=== PATIENT | male | born 1965 | race Caucasian/White ===

== ENCOUNTER 2021-03-23 17:00 | Inpatient (IN) | payer BC ==
[~2021-03-23] VITALS: Ht 180.3 cm; Wt 121.5 kg
--- OUTSIDE RECORDS SUMMARY | 2021-03-23 17:02 | XMS ---
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 [facility] VISIT COUNT (12 MO.) 1 SAÚL Marie TOTAL 1 NOTE: Visits indicate total known visits. ED/UCC VISIT TRACKING (12 MO.) 03/23/2021 17:00 SAÚL Maldonado OR TYPE: Emergency COMPLAINT: - DIZZINESS, NAUSEA/VOMITING INPATIENT VISIT TRACKING (12 MO.) No inpatient visits to display in this time frame [id number]
[2021-03-23] MEDS ORDERED: RAMIPRIL2.5 MG PO (17:14)
[2021-03-23] MEDS ORDERED: TESTOSTERO200 MG/1 M IM (17:14)
[2021-03-23] MEDS ORDERED: DOXAZOSIN MESYLA1 MG PO (17:14)
[2021-03-23] MEDS ORDERED: TAMSULOSIN HCL0.4 MG PO (17:15)
[2021-03-23] MEDS ORDERED: METOPROLOL SUCC50 MG PO (17:15)
[2021-03-23] MEDS ORDERED: ANASTROZOLE1 MG PO (17:15)
--- NOTE | 2021-03-24 00:15 | NUR ---
in bed, eyes closed, resp even = cpap.
--- NOTE | 2021-03-24 00:33 | NUR ---
PT TO ROOM 115 FROM ED VIA STRETCHER AT 2345 WITH GRAVEL MACHINE OPERATOR. PT ALERT AND ORIENTED. ABLE TO TRANSFER SELF FROM BED TO STRETCHER. REPORTS INCREASED DIZZINESS/NAUSEA WITH MOVEMENT. ORDERS RECEIVED. IVF STARTED. SCHEDULED MEDS ADMINISTERED. PT DENIES PAIN. NEURO CHECK COMPLETE. NO DEFECITS NOTED. PT REPORTS DIZZINESS IMPROVED AFTER LYING STILL. TELE #[address] NSR[address] PT DENIES QUESTIONS OR CONCERNS AT THIS TIME. ORIENTATION TO ROOM AND NURSE CALL LIGHT PROVIDED.
--- NOTE | 2021-03-24 02:25 | NUR ---
VS AND I&O COMPLETE. NEURO ASSESSMENT COMPLETE. CONCRETE STONE FABRICATOR STRENGTH EAQUAL BILAT. PT REPORTS INTERMITTENT DOUBLE VISION "DEPENDING ON WHICH WAY I LOOK". PT ALSO REPORTS VISION CLEARS IF HE "CONCENTRATES FOR A FEW". NO OTHER DEFECITS NOTED. PT DENIES PAIN OR NAUSEA. DRINKING CLEAR LIQUIDS. PT ABLE TO REPOSITION SELF IN BED. HOME CPAP IN PLACE. PT DENIES NEEDS AT THIS TIME. CALL LIGHT IN REACH.
--- NOTE | 2021-03-24 04:22 | NUR ---
PT RESTING IN BED ON RIGHT SIDE. RESPIRATIONS EVEN. CPAP IN PLACE. TELE #7. HR 70'S.
--- NOTE | 2021-03-24 06:47 | NUR ---
VS AND I&O COMPLETE. PRN FOR PAIN ADMINISTERED FOR HEADACHE. NEURO CHECK COMPLETE. RIM TURNING FINISHER STRENGTH EQUAL BILAT. PT REPORTS DOUBLE VISION AND CONTINUED VERTIGO. DENIES NAUSEA AT THIS TIME. CLEAR LIQUIDS PROVIDED. MRI CHECKLIST COMPLETED AND PLACED IN CHART. PT DENIES FURTHER NEEDS. CALL LIGHT IN REACH.
--- NOTE | 2021-03-24 07:20 | NUR ---
REPORT RECIEVED FROM NIGHT CHAZ RENO
--- NOTE | 2021-03-24 07:34 | NUR ---
PULLED BLOOD OUT OF IV WO DIFFICULTY. RESTARTED FLUIDS. PT TOLERATED WELL.
--- NOTE | 2021-03-24 07:58 | NUR ---
MORNING ASSESSMENT DONE. PATIENT IS RESTING IN BED, REPORTS CONTINUED DOUBLE VISION. CLEAR LIQUIDS TO PATIENT, PLAN FOR BREAKFAST IN BED. PATIENT REPORTS HEADACHE IS 3/10 AND SLIGHTLY IMPROVED SINCE TYLENOL. PATIENT HAS HOME CPAP AT BEDSIDE. PATIENT GIVEN WEAK COFFEE, BELIEVES HE IS PARTIALLY HAVING A CAFFEINE HEADACHE. NO OTHER NEEDS NOTED AT THIS TIME.
--- NOTE | 2021-03-24 07:59 | EKG ---
[facility] [address] [facility] [place] [address] Signed Normal sinus rhythm Normal ECG When compared with ECG of 08-FEB-2017 15:57, Questionable change in QRS axis T wave inversion more evident in Inferior leads Confirmed by GEETHA FIERRO MD ([id number]) on 03/24/2021 7:59:16 AM Electronically Signed By: GEETHA FIERRO MD 03/24/21 0759 PATIENT NAME: CHALINO MATTA Electrocardiogram DATE OF : 69 PHYSICIAN: GEETHA FIERRO MD REPORT #: [id number] REPORT IS CONFIDENTIAL AND NOT TO BE RELEASED WITHOUT AUTHORIZATION
--- NOTE | 2021-03-24 08:15 | NUR ---
PT AWAKE IN BED. PT REQUESTED COFFEE SHADIA ZHENG ALLOWED WATERED DOWN COFFEE. WARM CLOTH GIVEN FOR FACE. CLEAR SODA GIVEN. PT REFUSED CHAIR PT IS AFRAID TO FALL OUT OF THE CHAIR. CALL LIGHT WITHIN REACH. NO FURTHER NEEDS AT THIS TIME.
--- NOTE | 2021-03-24 09:56 | NUR ---
MORNING MEDICATIONS GIVEN. PATIENT REPORTS CONTINUED HEADACHE, BELIEVES THIS WAS EXACERBATED BY WORKING WITH PHYSICAL THERAPY. SPOUSE IN ROOM WITH PATIENT, QUESTIONS ANSWERED ABOUT MEDICATIONS AND THERAPIES.
--- NOTE | 2021-03-24 10:12 | NUR ---
PT RESTING IN BED WITH FAMILY IN THE ROOM. CALL LIGHT WITHIN REACH. 12.5 IS THE PRESSURE READING ON BIPAP MACHINE. NO FURTHER NEEDS AT THIS TIME
--- NOTE | 2021-03-24 10:13 | NUR ---
PER PATIENT REQUEST, DISCUSSED PATIENT'S HOME TESTOSTERONE INJECTION. DR. FIERRO INDICATED THAT SHE WAS INTENTIONALLY HOLDING THIS MEDICATION. RELAYED INFORMATION TO PATIENT AND SPOUSE.
--- NOTE | 2021-03-24 11:05 | NUR ---
I was able to visit with Mrs. Garvin today, unfortunately Mr. Garvin was sleeping while I was in the room. He was wearing his CPAPP, and his resperations were even and unlabored. He did not awaken while I was visiting with Mr. Garvin. Mrs. Garvin states that she is happy with the care that her is receiving. She is aware that Mr. Garvin will be getting an MRI this afternoon, and she has no questions or concerns for me at this time. I did leave my card with Mrs. Garvin should she have any questions in the future.
--- NOTE | 2021-03-24 11:52 | NUR ---
PATIENT IS RESTING IN BED, CPAP IS ON, SPOUSE IN ROOM, DENIES NEEDS AT THIS TIME.
--- NOTE | 2021-03-24 12:37 | NUR ---
PT LAYING IN BED, ROOM DARKENED ON PT'S REQUEST. PT SUPPORTED BY HIS SIDNEY AT . PT FEELS INFORMED, WAITING FOR MRI LATER TODAY FOR MORE INFO. PAIN IN HEAD AND NECK. PT ALERT ORIENTED AND DECLINED PRAYER AT THIS TIME. WILL FOLLOW NEEDED
--- NOTE | 2021-03-24 13:08 | NUR ---
PATIENT AT MRI.
[2021-03-24] MEDS ORDERED: CLOMIPHENE CITR50 MG PO (13:42)
[2021-03-24] MEDS ORDERED: ADULT ASPIRIN R81 MG PO (13:43)
[2021-03-24] MEDS ORDERED: VITAMIN D350 MC3 PO (13:44)
[2021-03-24] MEDS ORDERED: VITAMIN C500 M1 PO (13:44)
[2021-03-24] MEDS ORDERED: FISH OIL 1,0001 EAC2 PO (13:45)
--- NOTE | 2021-03-24 13:46 | NUR ---
PATIENT BACK FROM MRI, ONE PERSON ASSIST, CONTINUED DOUBLE VISION. PATIENT IS SITTING AT BEDSIDE TO USE URINAL, SPOUSE IS IN ROOM WITH PATIENT.
--- NOTE | 2021-03-24 13:54 | NUR ---
MED REC COMPLETE
--- NOTE | 2021-03-24 15:50 | NUR ---
PATIENT IS SLEEPING, SPOUSE DENIES NEEDS.
--- NOTE | 2021-03-24 16:02 | NUR ---
Spoke with pt and , Lilliam. Currently living in a 5th wheel RV. Both state concern of pt getting into and around in RV. Pt cont. to complain of dizziness, double vision, and L side feeling odd. Pt stat es he has been on disability x 2 years for femur fracture. works at [employer]. Discussed visit with Dr. Diaz hospitalist and she feels pt would do well at an IP rehab. Pt and are both in agreement with this. UPdated to [place] and [facility]. would prefer [facility] then [facility]. Informed I will check what is available in [facility] [place]. He states he is eligible for medicaid in Nov of this year. Will check with IP rehabs for availability.
--- NOTE | 2021-03-24 17:12 | NUR ---
CALL TO DR. FRANCIS. PATIENT IS NOT WILLING TO TAKE LIPITOR HE REPORTS PAST SEVERAL TRIES ON STATINS AND UNKNOWN ALLERGIC REACTION.
--- NOTE | 2021-03-24 19:00 | NUR ---
PT AWAKE IN ROOM PT AMBULATED TO SHOWER AND IS USING SHOWER CHAIR TO INDEPENDENTLY. LINEN CHANGED. IN ROOM. NO FURTHER NEEDS
--- NOTE | 2021-03-24 19:38 | NUR ---
shift report from jocelynn rn, pt out to meet rn - reports he is resting, she denies needs for him.
--- NOTE | 2021-03-24 20:37 | NUR ---
PT AMB TO BR TO VOID WITH JAMES, RN ASSISTED. PT VERY STEADY. PO MEDS FOR H/A. CALL KEVIN IN REACH.
--- NOTE | 2021-03-25 06:41 | NUR ---
pt checked on, resp rate regular, cpap on. eyes closed - charger operator helper aware that pt was allowed to rest. call light in reach
--- NOTE | 2021-03-25 07:03 | NUR ---
Report from Rashel Rucker RN. Patient lying in bed, CPAP in place. Vitals obtained by Rashel Rucker RN, at this time. Patient denies other needs. Call light in reach, bed rails up X2.
--- NOTE | 2021-03-25 07:23 | NUR ---
Shift report recieved from SHADIA Soriano, pt resting safely in bed w/ call light in reach and CPAP on. Pt denies any needs at this time.
--- NOTE | 2021-03-25 08:31 | NUR ---
Pt resting in bed safely w/ call light in reach and CPAP on. Breakfast at bedside, but pt states he does not have an appetite due to MORALES, PRN Tylenol given per pt request/provider order. Morning assesment complete and scheduled meds given per provider order. Pt denies any other needs at this time .
--- NOTE | 2021-03-25 09:36 | NUR ---
CALL PLACED TO MARSHALL AT [facility]. MARSHALL REQUESTING FURTHER OT, ST AND DISCHARGE PLAN INFORMATION. DETAILS DISCUSSED AND CHART NOTES FAXED. MARSHALL STATES SHE WILL HAVE THE IP MD REVIEW THE NOTES SENT TODAY, BUT THE PATIENT DOES LOOK LIKE A GOOD CANDIDATE FOR ADMISSION. MARSHALL STATES SHE WILL CALL WHEN AUTH IS SUBMITTED TO PATIENTS INSURANCE. CLIFF RENO UPDATED.
--- NOTE | 2021-03-25 09:43 | NUR ---
Patient uses call light to request something for nausea. States headache has dropped from 5/10 to 3/10, but pain is causing him to feel nauseated. PRN Zofran administered, instructed to call if nausea is not improving to notify staff. Verbalizes understanding. Denies other needs at this time. Call light in reach, bed rails up X2.
--- NOTE | 2021-03-25 10:21 | NUR ---
Pt is resting in bed safely w/ call light in reach. Pt c/o feeling dizzy and anxious PRN med given per pt request/provider order. Pt unable to eat breakfast due to dizziness. VSS on RA
--- NOTE | 2021-03-25 11:01 | NUR ---
Spoke with Ashley at [facility] rehab they are submitting for auth to [facility]. She is requesting note for ST and note sent showing pt was not seen due to PT/OT seeing pt.
--- NOTE | 2021-03-25 11:39 | NUR ---
PER DECEMBER AT [facility] PATIENT HAS BEEN ACCEPTED TO THEIR PROGRAM. DECEMBER TO SUBMIT FOR INSURANCE APPROVAL AT THIS TIME. CLIFF RENO UPDATED.
--- NOTE | 2021-03-25 12:00 | NUR ---
Pt sitting up in bed, provider in room to see pt.
--- NOTE | 2021-03-25 12:45 | NUR ---
DR. FRANCIS UPDATED REGARDING PLACEMENT TO [facility] RE[facility]. INSURANCE AUTHORIZATION STILL PENDING AT THIS TIME. WILL CONTINUE TO FOLLOW UP ON REFERRAL.
--- NOTE | 2021-03-25 13:46 | NUR ---
CONNECTED [facility]. SHE FEELS PT IS SLIGHTLY IMPROVING, RESTED WELL LAST NIGHT BUT STILL HAS HEADACHE. SHE FEELS INFORMED AND SEEMED TO BE IN A HURRY. GAVE BLESSING, WILL FOLLOW
--- NOTE | 2021-03-25 14:23 | NUR ---
Pt resting in bed safely w/ call light in reach, at bedside. Pt c/o Billy and dizziness. PRN medications given per pt request/provider order. Afternoon assesment complete and scheduled medication given per provider order, VSS on RA. Pt denies any other needs at this time
--- NOTE | 2021-03-25 16:00 | NUR ---
Pt resting in bed safely w/ call light in reach. Pt denies any needs at this time
--- NOTE | 2021-03-25 18:00 | NUR ---
Pt resting in bed w/ CPAP on and call light in reach, RR even and unlabored.
--- NOTE | 2021-03-25 20:00 | NUR ---
PATIENT RESTING QUIETLY ON THE LEFT SIDE, CPAP IS ON, PATIENT'S EYES ARE CLOSED, RESPIRATIONS REGULAR AND EVEN, CALL LIGHT IN REACH.
--- NOTE | 2021-03-25 20:49 | NUR ---
PATIENT GIVEN 400MG ADVIL FOR MORALES AND 4MG IV ZOFRAN FOR NAUSEA. PATIENT ABLE TO KEEP DOWN OTHER ORAL MEDS. PATIENT'S WATER REFILLED AND SOME POP GIVEN. PATIENT HAD NO OTHER NEEDS AT THIS TIME. CALL LIGHT IN REACH.
--- NOTE | 2021-03-25 22:00 | NUR ---
PATIENT HAS HAD NO MORE C/O NAUSEA OR PAIN AND IS RESTING QUIETLY ON CPAP WITH REGULAR AND EVEN RESPIRATIONS, EYES CLOSED, CALL LIGHT IN REACH.
--- NOTE | 2021-03-26 00:21 | NUR ---
PATIENT RESTING QUIETLY ON CPAP, RESPIRATIONS REGULAR AND EVEN, CALL LIGHT IN REACH.
--- NOTE | 2021-03-26 02:30 | NUR ---
PATIENT RESTING QUIETLY ON HIS RIGHT SIDE, RESPIRATIONS REGULAR AND EVEN ON CPAP, CALL LIGHT IN REACH.
--- NOTE | 2021-03-26 04:38 | NUR ---
PATIENT RESTING QUIETLY ON HIS RIGHT SIDE, RESPIRATIONS REGULAR AND EVEN ON CPAP, CALL LIGHT IN REACH.
--- NOTE | 2021-03-26 05:25 | NUR ---
PATIENT'S MORALES HAS RETURNED 01/12 AND PO ADVIL REPEATED. PATIENT'S HAVING NO NAUSEA AND SAYS HE HAS SLEPT PRETTY WELL. PATIENT HAVING NO DOUBLE VISION OR ANY OTHER NEUROLOGICAL ISSUES AT THIS TIME. PATIENT HAD NO CURRENT CARE NEEDS AND LIGHTS TURNED BACK DOWN PATIENT WOULD LIKE TO GO BACK TO SLEEP. PATIENT HAS BEEN ON HIS CPAP ALL NIGHT. CALL LIGHT IN REACH.
--- NOTE | 2021-03-26 07:11 | NUR ---
Report from Callie Mosley RN. Patient resting in bed with CPAP in place. Respirations even and unlabored. Allowed to rest at this time. Call light in reach. Bed rails up X2.
--- NOTE | 2021-03-26 07:46 | NUR ---
Deshaun report recieved from SHADIA Hwang, pt resting in bed safely w/ CPAP on and call light in reach.
--- NOTE | 2021-03-26 09:05 | NUR ---
PATIENT UP IN CHAIR. FINISHED 100% OF BREAKFAST. CHANGED LINEN. TOOK VITALS. ALL IN NORMAL RANGE. PATIENT RECIEVED BLANKET, ICE WATER AND SPRITE. DOES NOT NEED ANYTHING ELSE AT THIS TIME. CALL LIGHT IN REACH.
--- NOTE | 2021-03-26 10:00 | NUR ---
Spoke with Ashley from [facility] rehab x 2. They have accepted this pt. Updated I am awaiting orders from Dr. Valle and DC summary. Ashley now asking for stat covid test prior to pt leaving. Informed I can do this. Informed pt has been vacinated in February with [facility]. They still require a covid test prior to admission. Order entered and RT notified.
[2021-03-26] MEDS ORDERED: CLOPIDOGREL75 MG PO (10:23)
[2021-03-26] MEDS ORDERED: EZETIMIBE10 MG PO (10:23)
[2021-03-26] MEDS ORDERED: IBUPROFEN200 MG PO (10:24)
[2021-03-26] MEDS ORDERED: MECLIZINE HCL12.5 MG PO (10:25)
[2021-03-26] MEDS ORDERED: ONDANSETRON ODT4 MG SL (10:25)
[2021-03-26] MEDS ORDERED: ACETAMINOPHEN500 MG PO (10:25)
[2021-03-26] MEDS ORDERED: HYDROXYZINE PAM25 MG PO (10:25)
[2021-03-26] MEDS ORDERED: PROCHLORPERAZINE5 MG PO (10:26)
--- NOTE | 2021-03-26 10:33 | NUR ---
Pt worked w/ PT, now back in room, provider in room to asses pt. Pt c/o nausea and dizziness, PRN medication given per pt request/provider order. Morning assesment completed and scheduled meds given per provider order. Pt showereing independently w/ set up assistance needed.
--- NOTE | 2021-03-26 10:54 | NUR ---
RT COLLECTED COVID 19 SWAB WITH NO COMPLICATIONS. RT USED THE CEPHEID RAPID TEST THROUGH IN HOUSE LAB PER DR REQUEST AT THIS TIME.
--- NOTE | 2021-03-26 11:04 | NUR ---
NURSE CLIFF SET PATIENT UP FOR SHOWER. PATIENT IS BACK IN BED. COMPLETE LINEN CHANGE. PATIENT DOES NOT NEED ANYTHING AT THIS TIME. CALL LIGHT IN REACH.
--- NOTE | 2021-03-26 11:30 | NUR ---
Called and updated Ashley I have orders, med list, and dc summary as requested I am still awaiting to rapid covid test. She states they would like the pt as soon as possible, but its ok as long as he arrives by 3 pm. Called and spoke with pts and updated on clothing needs and over person belongings to take. She will pick pt up around 12 and transport if covid test is completed.
--- NOTE | 2021-03-26 12:00 | NUR ---
Pt sitting up in chair eating lunch, pt c/o MORALES, PRN medication given per pt request/provider order. Pt denies any other needs, call light in reach.
--- NOTE | 2021-03-26 12:22 | NUR ---
Called the lab, Covid rapid test will be complete in 7 min. Updated Transportation Driver, pt will be able to leave for rehab whenever his arrives. Updated pt. he will be able to leave whenever his arrives. Questions answered regarding IP rehab, clothing and personal items to take.
--- NOTE | 2021-03-26 12:40 | NUR ---
Medication list, dc summary, dc orders, covid test faxed to Ashley at Rehab.
--- NOTE | 2021-03-26 14:26 | NUR ---
Discharge instructions given to pt and his . Pt's VSS on RA, IV removed. Report called to SHADIA King at [place] rehab unit. Pt's transporting pt to [place].
== END 2021-03-26 14:08 | disposition home or self-care (01) | DRG 64 ==
LOC: ED 17:00 → MS 22:09
PROVIDERS: ADMIT Internal Medicine; ATTEND Internal Medicine
DX: I63.211 Cerebral infarction due to unspecified occlusion or stenosis of right vertebral artery (principal); G93.6 Cerebral edema; E23.0 Hypopituitarism; Z20.822 Contact with and (suspected) exposure to COVID-19; I10 Essential (primary) hypertension; E86.0 Dehydration; R29.700 NIHSS score 0; H53.2 Diplopia; N40.0 Benign prostatic hyperplasia without lower urinary tract symptoms; Z98.890 Other specified postprocedural states; Z88.2 Allergy status to sulfonamides; Z88.0 Allergy status to penicillin; Z79.899 Other long term (current) drug therapy
CPT/HCPCS: 70450; 70496; 70498; 70553; 71045; 80048; 80053; 80061; 81001; 83735; 85025; 85610; 93005; 93010; 93306; 97110; 97116; 97162; 97166; 97530; 97535; 99285-25; A9577; C9113; C9803; J1200; J1650; J2405; J2765; J3360; J3475; J7030; J7040; Q0177; Q9967; U0003

== ENCOUNTER 2022-07-17 13:38 | Emergency (ER) | payer BC ==
[~2022-07-17 13:38] MED LIST: ACETAMINOPHEN500 MG PO; ADULT ASPIRIN R81 MG PO; ANASTROZOLE1 MG PO; CLOMIPHENE CITR50 MG PO; CLOPIDOGREL75 MG PO; DOXAZOSIN MESYLA1 MG PO; EZETIMIBE10 MG PO; FISH OIL 1,0001 EAC2 PO; HYDROXYZINE PAM25 MG PO; IBUPROFEN200 MG PO; MECLIZINE HCL12.5 MG PO; METOPROLOL SUCC50 MG PO; ONDANSETRON ODT4 MG SL; PROCHLORPERAZINE5 MG PO; RAMIPRIL2.5 MG PO; TAMSULOSIN HCL0.4 MG PO; TESTOSTERO200 MG/1 M IM; VITAMIN C500 M1 PO; VITAMIN D350 MC3 PO
== END 2022-07-17 15:44 | disposition home or self-care (01) ==
LOC: ED 13:38
DX: S06.0X0A Concussion without loss of consciousness, initial encounter (principal); S01.01XA Laceration without foreign body of scalp, initial encounter; W22.8XXA Striking against or struck by other objects, initial encounter; I10 Essential (primary) hypertension; Z88.2 Allergy status to sulfonamides; Z88.0 Allergy status to penicillin; Z79.899 Other long term (current) drug therapy
CPT/HCPCS: 12001; 36415; 70450; 80053; 85025; 99283-25; G0480

== ENCOUNTER 2025-01-07 05:52 | Day surgery (SDC) | payer BC ==
[2025-01-02 08:38] VITALS: BP 124/75
[2025-01-07] VITALS (9 sets, daily range): BP systolic 117–141; BP diastolic 63–88
[~2025-01-07] VITALS: Ht 180.3 cm; Wt 113.2 kg
[~2025-01-07 05:52] MED LIST changes: +LACTATED RINGER'S 1,000 ML IV SCH; +OZEMPIC2 MG/0.75 SUB-Q
[2025-01-07] MEDS ORDERED: TYLENOL EXTRA500 MG PO (06:09)
[2025-01-07] MEDS ORDERED: IBLOOD GLUCOSE TEST STRIP 1 EA TEST VI PRN ×2 (07:00→07:30)
[2025-01-07] MEDS ORDERED: LIDOCAINE HCL 1% 5 ML SDV INJ ONE (07:00)
[2025-01-07] MEDS ORDERED: CEFAZOLIN SODIUM 2 GM/20 ML SYR IV SCH (07:00)
[2025-01-07] MEDS ORDERED: DEXAMETHASONE SOD PHOS 4 MG/ML VIAL ONE (07:22)
[2025-01-07] MEDS ORDERED: fentaNYL citrate 100 MCG/2 ML VIAL ONE (07:22)
[2025-01-07] MEDS ORDERED: ACETAMINOPHEN 1,000 MG/100 ML VIAL ONE (07:22)
[2025-01-07] MEDS ORDERED: SUGAMMADEX SODIUM 200 MG/2 ML ML ONE (07:22)
[2025-01-07] MEDS ORDERED: propofoL 200 MG/20 ML VIAL ONE ×2 (07:22→07:23)
[2025-01-07] MEDS ORDERED: ROCURONIUM BROMIDE 50 MG/5 ML SYR ONE ×2 (07:22→08:28)
[2025-01-07] MEDS ORDERED: ondansetron HCL 4 MG/2 ML VIAL ONE (07:22)
[2025-01-07] MEDS ORDERED: LIDOCAINE HCL 2% 5 ML SDV ONE (07:22)
[2025-01-07] MEDS ORDERED: HYDROmorphone HCL 1 MG/ML SYR IV PRN ×2 (07:30→07:45)
[2025-01-07] MEDS ORDERED: PROCHLORPERAZINE EDISYLATE 10 MG/2 ML VIAL IV PRN (07:30)
[2025-01-07] MEDS ORDERED: droPERidol 5 MG/2 ML VIAL IV PRN (07:30)
[2025-01-07] MEDS ORDERED: NALOXONE HCL 0.4 MG SYR IV PRN (07:30)
[2025-01-07] MEDS ORDERED: fentaNYL citrate 50 MCG/ML SDV IV PRN (07:30)
[2025-01-07] MEDS ORDERED: ondansetron HCL 4 MG/2 ML VIAL IV PRN ×2 (07:30→07:45)
[2025-01-07] MEDS ORDERED: diphenhydrAMINE HCL 25 MG CAP PO PRN (07:45)
[2025-01-07] MEDS ORDERED: OXYCODONE/APAP 5/325 TAB PO PRN (07:45)
[2025-01-07] MEDS ORDERED: LACTATED RINGER'S 1,000 ML IV SCH (07:45)
[2025-01-07] MEDS ORDERED: CEFTRIAXONE SODIUM 1 GM in SODIUM CHLORIDE 0.9% 100 ML IV SCH (08:32)
[2025-01-07] MEDS ORDERED: OXYCODONE HCL5 MG PO (13:19)
[2025-01-07] MEDS ORDERED: LEVOFLOXACIN500 MG PO (13:22)
[2025-01-07] MEDS ORDERED: SEVOFLURANE 250 ML BTL INH ONE (16:14)
[2025-01-07] MEDS ORDERED: lisinopriL 2.5 MG TABLET PO SCH (18:00)
[2025-01-08 01:28] VITALS: BP 123/68
[2025-01-08 01:43] VITALS: BP 123/68
[2025-01-08 06:27] VITALS: BP 122/69
[2025-01-08] MEDS ORDERED: CEFTRIAXONE SODIUM 1 GM in SODIUM CHLORIDE 0.9% 100 ML IV SCH (07:00)
[2025-01-08 09:46] VITALS: BP 135/76
--- NOTE | 2025-01-09 12:18 | PATH ---
[facility] [address] [place], [place] [address] Signed SPECIMEN(S): A PROSTATE CHIPS SPECIMEN SOURCE: Zaira. PROSTATE CHIPS CLINICAL HISTORY: BPH luts FINAL PATHOLOGIC DIAGNOSIS: Prostate, transurethral resection: - Benign prostatic tissue with glandular and stromal hyperplasia BRP MICROSCOPIC EXAMINATION: Histologic sections of all submitted blocks are examined by light microscopy. These findings, together with the gross examination, support the pathologic diagnosis. GROSS DESCRIPTION: The specimen, labeled and designated "Dariela Matta, prostate chips," is received in formalin is a 14 g, 6.9 x 5.7 x 0.9 cm aggregate of pink-ornelas to sheffield rubbery soft tissue. 100% submitted in (A1). AB (under the direct supervision of a pathologist) The Gross Description was prepared using a voice recognition system. The report was reviewed for accuracy; however, sound-alike word errors, addition and/or deletions may occur. If there is any question about this report, please contact Client Services. ADDITIONAL NOTES: Immunohistochemical and/or in situ hybridization studies if performed in this case included appropriate positive controls that reacted as expected. This test was developed and its performance characteristics determined by [facility]. It has not been cleared or approved by the U.S. Food and Drug Administration. The FDA has determined that such clearance or approval is not necessary. This test is used for clinical purposes. It should not be regarded as investigational or for research. [facility] is certified under the Clinical Laboratory Improvement Amendments of 1988 (CLIA) as qualified to perform high complexity clinical laboratory testing. PATIENT NAME: CHALINO MATTA PATHOLOGY DATE OF : 69 REPORT #: [id number] PHYSICIAN: BENITO ROCHA PCP: JAMAR KANG PA-C REPORT IS CONFIDENTIAL AND NOT TO BE RELEASED WITHOUT AUTHORIZATION [facility] [address] [place] [address] Signed PERFORMING LABORATORY: Technical component was performed by [facility], [address] [place] [address] (CLIA# [id number]). Professional interpretation was performed by [facility] - [facility], [address] [place] [address] (CLIA#: [id number]). Diagnostician: Byron Menendez MD Pathologist Electronically Signed 01/09/2025 Copies: ~ PATIENT NAME: CHALINO MATTA PATHOLOGY DATE OF : 69 REPORT #: [id number] PHYSICIAN: BENITO ROCHA PCP: JAMAR KANG PA-C REPORT IS CONFIDENTIAL AND NOT TO BE RELEASED WITHOUT AUTHORIZATION
== END 2025-01-08 09:45 | disposition home or self-care (01) ==
LOC: DS 05:52 → MS 10:25 → DS 01-08 09:45
PROVIDERS: ATTEND Urology
PROC: 0VT08ZZ Resection of Prostate, Via Natural or Artificial Opening Endoscopic (ICD-10-PCS; principal; 2025-01-07 07:30)
DX: N40.1 Benign prostatic hyperplasia with lower urinary tract symptoms (principal); N39.41 Urge incontinence; R39.15 Urgency of urination; R35.0 Frequency of micturition; R35.1 Nocturia; R33.9 Retention of urine, unspecified; I10 Essential (primary) hypertension; E11.9 Type 2 diabetes mellitus without complications; E78.5 Hyperlipidemia, unspecified; E66.9 Obesity, unspecified; Z88.0 Allergy status to penicillin; Z88.2 Allergy status to sulfonamides; Z91.013 Allergy to seafood
CPT/HCPCS: 00914; 51700; 96360; 96361; 96374; C1713; J0131; J0690; J0696; J1100; J1171; J2003; J2405; J2704; J3010; J3490; J7121